=== PATIENT | male | born 1950 | race Caucasian/White ===

== ENCOUNTER 2016-10-15 19:22 | Observation (INO) | payer MEDICARE, OTHER ==
[~2016-10-15] VITALS: Ht 172.7 cm; Wt 77.3 kg
[2016-10-16] MEDS ORDERED: CALTRATE 600 WI1 TAB PO (08:45)
[2016-10-16] MEDS ORDERED: FOSAMAX70 MG PO (08:45)
[2016-10-16] MEDS ORDERED: HALFPRIN81 MG PO (08:45)
[2016-10-16] MEDS ORDERED: CEROVITE ADVANC1 TAB PO (08:46)
== END 2016-10-16 12:10 | disposition short-term general hospital (02) ==
LOC: ER 19:22 → IP 22:00 → OBS 22:00 → IP 22:00
PROVIDERS: ADMIT Family Medicine
DX: R42 Dizziness and giddiness (principal); R11.2 Nausea with vomiting, unspecified; R00.1 Bradycardia, unspecified; M81.0 Age-related osteoporosis without current pathological fracture; Z79.899 Other long term (current) drug therapy; R41.82 Altered mental status, unspecified
CPT/HCPCS: A9577; G0378; J2405